=== PATIENT | female | born 1945 | race Caucasian/White ===

== ENCOUNTER 2019-07-07 07:52 | Day surgery (SDC) | payer MEDICARE ==
[~2019-07-07] VITALS: Ht 162.6 cm; Wt 87.7 kg
[~2019-07-07 07:52] MED LIST: ARTHRITIS PAIN650 MG PO; Advil200 M1 PO; Arthritis Pain650 M1 PO; EPIPEN 2-P0.3 MG/0.3 IM; EPIPEN0.3 MG/0.3 IM; HYDR1TAB94 PO; METO25 PO; MIGRAINE RELIE1 EACH PO; Norco 10-325 T1 EACH PO; POTA10T PO; POTCHL10ER PO; PRED20 PO; Prednisone20 MG PO; Robaxin750 MG PO; TRAZ50 PO; TUMS500 MG PO; ZYRTEC10 M1 PO; [UNRECOGNIZED DRUG - OTHER]
[2019-07-07] MEDS ORDERED: Ibuprofen Ib200 MG (08:25)
[2019-07-07] MEDS ORDERED: CHOL10002 (08:25)
--- NOTE | 2019-07-07 10:44 | NUR ---
07/07/19 1044 Aida Kapoor LATE ENTRY--ANESTHESIA EVALUATION DONE BY DR OLIVERA AND HE DECIDED NO NEED FOR ANESTHESIA. DR BROWER AGREED AND NURSE SEDATION WAS DONE WITH PATIENT CONSENT AND APPROVAL
== END 2019-07-07 10:30 | disposition home or self-care (01) ==
LOC: ORSCSDS 07:52
PROVIDERS: Surgery
PROC: 0DJD8ZZ Inspection of Lower Intestinal Tract, Via Natural or Artificial Opening Endoscopic (ICD-10-PCS; principal; 2019-07-07 09:15)
DX: Z12.11 Encounter for screening for malignant neoplasm of colon (principal); I10 Essential (primary) hypertension; Z79.899 Other long term (current) drug therapy
CPT/HCPCS: J2405; J2704; J7120

== ENCOUNTER → 2020-04-15 | Outpatient (CLI) | payer MEDICARE ==
[~2020-04-15] MED LIST changes: +CHOL10002; +Ibuprofen Ib200 MG
== END | disposition home or self-care (01) ==
LOC: LAB SHORT 18:16 → LAB 18:16
DX: M54.5 Low back pain (principal)
CPT/HCPCS: 87086

== ENCOUNTER → 2022-01-11 | Outpatient (CLI) | payer OTHER | LOC: LAB 13:45 → LAB SHORT 13:45 | DX: N39.0 Urinary tract infection, site not specified (principal) | CPT/HCPCS: 87086 ==

== ENCOUNTER → 2022-06-20 | Outpatient (CLI) | payer OTHER | END | disposition home or self-care (01) | LOC: LAB SHORT 12:30 → PLD 12:30 | DX: D48.5 Neoplasm of uncertain behavior of skin (principal) | CPT/HCPCS: 88305 ==

== ENCOUNTER → 2023-10-21 | Outpatient (CLI) | payer OTHER ==
[2023-10-21 16:00] LABS: Source, Urine Clean Catch
[2023-10-21 17:35] LABS: Appearance, Urine Hazy (Clear); Bilirubin, Urine Neg (Neg); Blood, Urine 3+ (Neg); Color, Urine Yellow (P-Yellow); Glucose Qualitative, Urine Neg (Neg); Ketones, Urine Neg (Neg); Leukocyte Esterase, Urine 3+ (Neg); Nitrite, Urine Neg (Neg); Protein, Urine 2+ (Neg); Urobilinogen, Urine NORM (Normal)
[2023-10-21 18:14] LABS: Bacteria Many /hpf; Calcium Oxalate Crystals Mod /hpf; Squamous Epithelial Cells Few /hpf (Few); Transitional Epithelial Cells Few /hpf (0-Rare); White Blood Cells, Urine 50-100 /hpf (0-5)
== END ==
LOC: LAB 15:59 → LAB SHORT 15:59
PROVIDERS: Student in an Organized Health Care Education/Training Program
DX: R30.0 Dysuria (principal)
CPT/HCPCS: 81001; 87077; 87086; 87186

== ENCOUNTER → 2023-11-23 | Outpatient (CLI) | payer OTHER ==
[~2023-11-23] MED LIST changes: +CEFUROXIME SOD1.5 GM; +HYDROCODONE-AC1 EAC7; +LOSA25 PO; +ONDA4ODT MM
[2023-11-23 10:26] LABS: BASOPHILS ABSOLUTE AUTO 0.04 K/mm3 (0.00-0.23); BASOPHILS PERCENT AUTO 0 % (0-2); EOSINOPHILS ABSOLUTE AUTO 0.21 K/mm3 (0.00-0.68); EOSINOPHILS PERCENT AUTO 2 % (0-6); Hematocrit 35.6 % (33.0-51.0); Hemoglobin 11.4 g/dL (11.5-16.0); IMMATURE GRAN ABSOLUTE AUTO 0.08 K/mm3 (0.00-0.10); IMMATURE GRAN PERCENT AUTO 1 % (0-1); LYMPHOCYTES ABSOLUTE AUTO 2.72 K/mm3 (0.84-5.20); LYMPHOCYTES PERCENT AUTO 25 % (21-46); MONOCYTES PERCENT AUTO 10 % (4-13); Mean Corpuscular Volume 84 fL (80-100); Mean Platelet Volume 9.8 fL (9.1-12.4); NEUTROPHILS ABSOLUTE AUTO 6.57 K/mm3 (1.96-9.15); NEUTROPHILS PERCENT AUTO 61 % (41-73); Platelet Count 394 K/mm3 (150-400); RDW Coefficient Variation 14.2 % (11.7-14.2); RDW Standard Deviation 43.5 fL (35.1-46.3); Red Blood Cell Count 4.23 M/mm3 (3.80-5.20); White Blood Cell Count 10.72 K/mm3 (4.00-11.30)
[2023-11-23 10:40] LABS: Albumin, Blood 2.8 g/dL (3.4-5.0); Albumin/Globulin Ratio 0.6 (0.8-1.8); Bilirubin, Total 0.5 mg/dL (0.1-1.0); Bun/Creatinine Ratio 17.9 (12.0-20.0); Calcium, Blood 10.9 mg/dL (8.5-10.1); Creatinine, Blood 1.34 mg/dL (0.40-1.00); Globulin, Blood 4.9 g/dL (2.2-4.0); Potassium, Blood 3.5 mmol/L (3.5-5.5); Total Protein, Blood 7.7 g/dL (6.4-8.2)
[2023-11-23 11:31] LABS: Magnesium, Blood 1.8 mg/dL (1.6-2.4); Phosphorus, Blood 3.6 mg/dL (2.5-4.9)
== END | disposition home or self-care (01) ==
LOC: LAB 10:21 → LAB SHORT 10:21
PROVIDERS: Chiropractor
DX: N39.0 Urinary tract infection, site not specified (principal); E20.9 Hypoparathyroidism, unspecified; R53.83 Other fatigue
CPT/HCPCS: 80053; 82306; 82330; 82550; 83690; 83735; 83970; 84100; 84484; 85025; 87077; 87086; 87186

== ENCOUNTER 2023-11-25 11:22 | Emergency (ER) | payer OTHER ==
[~2023-11-25] VITALS: Ht 162.6 cm; Wt 77.1 kg
[~2023-11-25 11:22] MED LIST changes: -CEFUROXIME SOD1.5 GM; -HYDROCODONE-AC1 EAC7; -LOSA25 PO; -ONDA4ODT MM
[2023-11-25 12:26] LABS: BASOPHILS ABSOLUTE AUTO 0.06 K/mm3 (0.00-0.23); BASOPHILS PERCENT AUTO 0 % (0-2); EOSINOPHILS ABSOLUTE AUTO 0.12 K/mm3 (0.00-0.68); EOSINOPHILS PERCENT AUTO 1 % (0-6); Hematocrit 37.2 % (33.0-51.0); Hemoglobin 12.2 g/dL (11.5-16.0); IMMATURE GRAN PERCENT AUTO 2 % (0-1); LYMPHOCYTES ABSOLUTE AUTO 2.54 K/mm3 (0.84-5.20); LYMPHOCYTES PERCENT AUTO 15 % (21-46); MONOCYTES ABSOLUTE AUTO 1.61 K/mm3 (0.16-1.47); MONOCYTES PERCENT AUTO 9 % (4-13); Mean Corpuscular HGB 27.7 pg (26.0-34.0); Mean Corpuscular HGB Conc 32.8 g/dL (31.5-36.5); Mean Corpuscular Volume 85 fL (80-100); NEUTROPHILS ABSOLUTE AUTO 12.74 K/mm3 (1.96-9.15); NEUTROPHILS PERCENT AUTO 73 % (41-73); Platelet Count 486 K/mm3 (150-400); RDW Coefficient Variation 14.4 % (11.7-14.2); RDW Standard Deviation 44.4 fL (35.1-46.3); White Blood Cell Count 17.37 K/mm3 (4.00-11.30)
[2023-11-25 12:35] LABS: Albumin, Blood 2.9 g/dL (3.4-5.0); Albumin/Globulin Ratio 0.5 (0.8-1.8); Bilirubin, Total 0.7 mg/dL (0.1-1.0); Calcium, Blood 9.4 mg/dL (8.5-10.1); Globulin, Blood 5.3 g/dL (2.2-4.0); Potassium, Blood 3.2 mmol/L (3.5-5.5); Total Protein, Blood 8.2 g/dL (6.4-8.2)
[2023-11-25] MEDS ORDERED: HYDROCODONE-AC1 EAC7 (12:51)
[2023-11-25] MEDS ORDERED: LOSA25 PO (12:51)
[2023-11-25] MEDS ORDERED: CEFUROXIME SOD1.5 GM (12:51)
[2023-11-25] MEDS ORDERED: ONDA4ODT MM (13:30)
[2023-11-25 13:45] VITALS: BP 118/51
== END 2023-11-25 14:18 | disposition home or self-care (01) ==
LOC: ER 11:22
PROVIDERS: Student in an Organized Health Care Education/Training Program
DX: N39.0 Urinary tract infection, site not specified (principal); B96.20 Unspecified Escherichia coli [E. coli] as the cause of diseases classified elsewhere; E86.0 Dehydration; E87.6 Hypokalemia; R10.13 Epigastric pain; I10 Essential (primary) hypertension; Z88.2 Allergy status to sulfonamides; Z79.899 Other long term (current) drug therapy
CPT/HCPCS: 80053; 85025; 93005; 93010; 96365; 96375; 99285-25; A9270; C9113; J0696; J2405; J7030

== ENCOUNTER 2023-12-10 07:13 | Inpatient (IN) | payer OTHER ==
[~2023-12-10] VITALS: Ht 157.5 cm; Wt 86.5 kg
[~2023-12-10 07:13] MED LIST changes: +CEFUROXIME SOD1.5 GM; +HYDROCODONE-AC1 EAC7; +LOSA25 PO; +ONDA4ODT MM
[2023-12-10 08:29] LABS: Source, Urine Clean Catch
[2023-12-10 08:42] LABS: BASOPHILS ABSOLUTE AUTO 0.03 K/mm3 (0.00-0.23); BASOPHILS PERCENT AUTO 0 % (0-2); EOSINOPHILS PERCENT AUTO 0 % (0-6); Hematocrit 36.6 % (33.0-51.0); Hemoglobin 11.9 g/dL (11.5-16.0); IMMATURE GRAN ABSOLUTE AUTO 0.15 K/mm3 (0.00-0.10); IMMATURE GRAN PERCENT AUTO 1 % (0-1); LYMPHOCYTES ABSOLUTE AUTO 0.81 K/mm3 (0.84-5.20); LYMPHOCYTES PERCENT AUTO 4 % (21-46); MONOCYTES ABSOLUTE AUTO 1.45 K/mm3 (0.16-1.47); MONOCYTES PERCENT AUTO 8 % (4-13); Mean Corpuscular HGB 27.2 pg (26.0-34.0); Mean Corpuscular HGB Conc 32.5 g/dL (31.5-36.5); Mean Corpuscular Volume 84 fL (80-100); NEUTROPHILS PERCENT AUTO 87 % (41-73); Platelet Count 372 K/mm3 (150-400); RDW Standard Deviation 43.1 fL (35.1-46.3); Red Blood Cell Count 4.37 M/mm3 (3.80-5.20); White Blood Cell Count 18.64 K/mm3 (4.00-11.30)
[2023-12-10 08:43] LABS: Appearance, Urine Cloudy (Clear); Bilirubin, Urine Neg (Neg); Blood, Urine 3+ (Neg); Color, Urine Yellow (P-Yellow); Glucose Qualitative, Urine Neg (Neg); Ketones, Urine Neg (Neg); Leukocyte Esterase, Urine 3+ (Neg); Nitrite, Urine Neg (Neg); Protein, Urine 3+ (Neg); Urobilinogen, Urine NORM (Normal); pH, Urine 6.5 (5.0-8.0)
[2023-12-10 08:46] LABS: Albumin/Globulin Ratio 0.7 (0.8-1.8); Bilirubin, Total 1.1 mg/dL (0.1-1.0); Bun/Creatinine Ratio 20.8 (12.0-20.0); Calcium, Blood 9.2 mg/dL (8.5-10.1); Creatinine, Blood 1.2 mg/dL (0.40-1.00); Globulin, Blood 4.1 g/dL (2.2-4.0); Potassium, Blood 4.3 mmol/L (3.5-5.5); Total Protein, Blood 7.1 g/dL (6.4-8.2)
[2023-12-10 08:53] LABS: Bacteria Many /hpf; Squamous Epithelial Cells Mod /hpf (Few); Transitional Epithelial Cells Mod /hpf (0-Rare); White Blood Cells, Urine 25-50 /hpf (0-5)
[2023-12-10 08:54] LABS: Red Blood Cells, Urine 0-2 /hpf (0-2)
[2023-12-10 08:55] LABS: Hyaline Casts 0-2 /lpf (0-2)
[2023-12-10 09:45] LABS: Source, Urine Straight Cath
[2023-12-10 09:51] LABS: Appearance, Urine Clear (Clear); Bilirubin, Urine Neg (Neg); Blood, Urine 2+ (Neg); Color, Urine Yellow (P-Yellow); Glucose Qualitative, Urine Neg (Neg); Ketones, Urine Neg (Neg); Leukocyte Esterase, Urine 3+ (Neg); Nitrite, Urine Neg (Neg); Protein, Urine 1+ (Neg); Specific Gravity, Urine 1.005 (1.003-1.022); Urobilinogen, Urine NORM (Normal); pH, Urine 6.5 (5.0-8.0)
[2023-12-10 10:05] LABS: Bacteria Few /hpf; Squamous Epithelial Cells Few /hpf (Few)
[2023-12-10 20:30] VITALS: BP 94/61
--- NOTE | 2023-12-10 20:30 | NUR ---
ADMIT RECEIVED FROM ER VIA GURNEY. AWAKE AND ALERT. ORIENTED AND COOPERATIVE. PT IS ABLE TO REPOSITION SELF IN BED. DENIES C/O PAIN AT THIS TIME. DENIES NAUSEA. MONITOR SHOWS NSR, RATE 70s. BP STABLE. RA SATS STABLE AND RESPIRATIONS ARE EVEN AND UNLABORED. SEE ADMIT ASSESSMENT FOR FULL ASSESSMENT.
[2023-12-10 20:45] VITALS: BP 123/54
[2023-12-10 21:00] VITALS: BP 110/59
[2023-12-10 22:00] VITALS: BP 95/56
[2023-12-10 23:00] VITALS: BP 103/58
[2023-12-11] VITALS (12 sets, daily range): BP systolic 81–152; BP diastolic 44–70
[2023-12-11 04:23] LABS: BASOPHILS ABSOLUTE AUTO 0.03 K/mm3 (0.00-0.23); BASOPHILS PERCENT AUTO 0 % (0-2); EOSINOPHILS ABSOLUTE AUTO 0.01 K/mm3 (0.00-0.68); EOSINOPHILS PERCENT AUTO 0 % (0-6); Hemoglobin 10.8 g/dL (11.5-16.0); IMMATURE GRAN ABSOLUTE AUTO 0.15 K/mm3 (0.00-0.10); IMMATURE GRAN PERCENT AUTO 1 % (0-1); LYMPHOCYTES ABSOLUTE AUTO 2.34 K/mm3 (0.84-5.20); LYMPHOCYTES PERCENT AUTO 11 % (21-46); MONOCYTES ABSOLUTE AUTO 1.23 K/mm3 (0.16-1.47); MONOCYTES PERCENT AUTO 6 % (4-13); Mean Corpuscular HGB Conc 31.8 g/dL (31.5-36.5); Mean Corpuscular Volume 85 fL (80-100); Mean Platelet Volume 9.8 fL (9.1-12.4); NEUTROPHILS ABSOLUTE AUTO 18.07 K/mm3 (1.96-9.15); NEUTROPHILS PERCENT AUTO 83 % (41-73); Platelet Count 304 K/mm3 (150-400); RDW Coefficient Variation 14.6 % (11.7-14.2); RDW Standard Deviation 44.9 fL (35.1-46.3); White Blood Cell Count 21.83 K/mm3 (4.00-11.30)
[2023-12-11 05:19] LABS: Albumin, Blood 2.6 g/dL (3.4-5.0); Albumin/Globulin Ratio 0.6 (0.8-1.8); Bilirubin, Total 0.8 mg/dL (0.1-1.0); Bun/Creatinine Ratio 16.8 (12.0-20.0); Calcium, Blood 8.7 mg/dL (8.5-10.1); Creatinine, Blood 1.43 mg/dL (0.40-1.00); Globulin, Blood 4.1 g/dL (2.2-4.0); Potassium, Blood 4.5 mmol/L (3.5-5.5); Total Protein, Blood 6.7 g/dL (6.4-8.2)
--- NOTE | 2023-12-11 06:14 | NUR ---
SHIFT SUMMARY NO ACUTE CHANGES DURING NOC. SLEPT INTERMITTENTLY. ROUSES EASILY TO STIMULI. MEDICATED WITH DILAUDID 1MG PO X 1 DOSE AND TYLENOL 650MG PO X 1 DOSE FOR C/O LEFT FLANK PAIN. MEDICATED WITH ZOFRAN 4MG IV X 1 DOSE FOR C/I NAUSEA. CONTINUES WITH GENERAL WEAKNESS. UP TO [facility] WITH ONE PERSON ASSIST. VOIDED X 1 DURING SHIFT AND PASSED 1 LARGE SOFT UNFORMED STOOL. C/O BURNING WITH URINATION. VSS. MONITOR SHOWS NSR, RATE 60s-70s. RA SATS STABLE. AFEBRILE. POTENTIAL PLAN TO TRANSFER PT TO [facility] WHEN BED AVAILABLE.
--- NOTE | 2023-12-11 10:48 | NUR ---
[place] transfer Pt reporting pain to left flank, medicated per emar. Pt reproting nausea, medicated per emar. No changes t/o shift from initial assessment. Pt left with [facility] transport at approx 0915. Family at bedside. Report called to [facility].
== END 2023-12-11 09:15 | disposition short-term general hospital (02) | DRG 872 ==
LOC: ER 07:13 → ICUE 19:28 → PCU 19:28 → ICUE 20:30
PROVIDERS: Emergency Medicine; Family Medicine; ADMIT Student in an Organized Health Care Education/Training Program
DX: A41.9 Sepsis, unspecified organism (principal); N13.6 Pyonephrosis; E87.20 Acidosis, unspecified; Z66 Do not resuscitate; R65.20 Severe sepsis without septic shock; I10 Essential (primary) hypertension; M19.90 Unspecified osteoarthritis, unspecified site; K21.9 Gastro-esophageal reflux disease without esophagitis; G89.29 Other chronic pain; M54.50 Low back pain, unspecified; E87.6 Hypokalemia; Z96.82 Presence of neurostimulator; Z79.891 Long term (current) use of opiate analgesic
CPT/HCPCS: 36415; 51701; 74177; 80053; 81001; 83605; 83690; 84484; 85025; 87077; 87086; 87186; 93005; 93010; 96361; 96365-59; 96375; 96376; 99285-25; A9270; J0696; J1170; J2405; J3010; J7030; Q9967

== ENCOUNTER 2023-12-15 16:38 | Inpatient (IN) | payer OTHER ==
[~2023-12-15] VITALS: Ht 157.5 cm; Wt 89.3 kg
[~2023-12-15 16:38] MED LIST changes: -LOSA25 PO; +LOSA50 PO
[2023-12-15 17:10] LABS: BASOPHILS ABSOLUTE AUTO 0.02 K/mm3 (0.00-0.23); BASOPHILS PERCENT AUTO 0 % (0-2); EOSINOPHILS ABSOLUTE AUTO 0.02 K/mm3 (0.00-0.68); EOSINOPHILS PERCENT AUTO 0 % (0-6); Hemoglobin 12.4 g/dL (11.5-16.0); IMMATURE GRAN PERCENT AUTO 2 % (0-1); LYMPHOCYTES ABSOLUTE AUTO 2.02 K/mm3 (0.84-5.20); LYMPHOCYTES PERCENT AUTO 21 % (21-46); MONOCYTES ABSOLUTE AUTO 0.77 K/mm3 (0.16-1.47); MONOCYTES PERCENT AUTO 8 % (4-13); Mean Corpuscular HGB 26.4 pg (26.0-34.0); Mean Corpuscular HGB Conc 32.6 g/dL (31.5-36.5); Mean Corpuscular Volume 81 fL (80-100); Mean Platelet Volume 9.6 fL (9.1-12.4); NEUTROPHILS ABSOLUTE AUTO 6.67 K/mm3 (1.96-9.15); NEUTROPHILS PERCENT AUTO 69 % (41-73); Platelet Count 549 K/mm3 (150-400); RDW Coefficient Variation 14.4 % (11.7-14.2); RDW Standard Deviation 42.2 fL (35.1-46.3); Red Blood Cell Count 4.69 M/mm3 (3.80-5.20)
[2023-12-15] MEDS ORDERED: PANTOPRAZOLE SO40 M2 PO (17:13)
[2023-12-15] MEDS ORDERED: METO50ER PO (17:14)
[2023-12-15] MEDS ORDERED: Potassium Chlo20 ME1 PO (17:14)
[2023-12-15] MEDS ORDERED: APHEN325 M2 PO (17:24)
[2023-12-15] MEDS ORDERED: CEPH500 PO (17:26)
[2023-12-15 17:28] LABS: Albumin/Globulin Ratio 0.6 (0.8-1.8); Bilirubin, Total 0.3 mg/dL (0.1-1.0); Bun/Creatinine Ratio 16.5 (12.0-20.0); Calcium, Blood 9.7 mg/dL (8.5-10.1); Creatinine, Blood 0.79 mg/dL (0.40-1.00); Globulin, Blood 4.7 g/dL (2.2-4.0); Potassium, Blood 2.8 mmol/L (3.5-5.5); Total Protein, Blood 7.7 g/dL (6.4-8.2)
[2023-12-15 17:46] LABS: Source, Urine Clean Catch
[2023-12-15 17:48] LABS: Bilirubin, Urine Neg (Neg); Blood, Urine 4+ (Neg); Color, Urine Yellow (P-Yellow); Glucose Qualitative, Urine Neg (Neg); Ketones, Urine Neg (Neg); Leukocyte Esterase, Urine 3+ (Neg); Nitrite, Urine Neg (Neg); Protein, Urine 3+ (Neg); Urobilinogen, Urine NORM (Normal); pH, Urine 6.5 (5.0-8.0)
[2023-12-15 17:55] LABS: Appearance, Urine Hazy (Clear)
[2023-12-15 17:57] LABS: Bacteria Mod /hpf
[2023-12-15 17:58] LABS: Squamous Epithelial Cells Mod /hpf (Few)
[2023-12-15 23:11] LABS: Adenovirus F 40/41 Not Detected (NOT DETECT); Astrovirus Not Detected (NOT DETECT); Campylobacter Sp Not Detected (NOT DETECT); Cryptosporidium Not Detected (NOT DETECT); Cyclospora Cayetanensis Not Detected (NOT DETECT); E. Coli O157 Not Detected (NOT DETECT); Entamoeba Histolytica Not Detected (NOT DETECT); Enteroaggregative E. coli-EAEC Not Detected (NOT DETECT); Enteropathogenic E. coli-EPEC Not Detected (NOT DETECT); Enterotoxigenic E. coli-ETEC Not Detected (NOT DETECT); Giardia Lamblia Not Detected (NOT DETECT); Norovirus GI/GII Not Detected (NOT DETECT); Plesiomonas Shigelloides Not Detected (NOT DETECT); Rotavirus A Not Detected (NOT DETECT); Salmonella Sp Not Detected (NOT DETECT); Sapovirus Not Detected (NOT DETECT); Shiga Toxin-prod E. coli-STEC Not Detected (NOT DETECT); Shigella/Enteroin E. coli-EIEC Not Detected (NOT DETECT); Vibrio Cholerae Not Detected (NOT DETECT); Vibrio Sp Not Detected (NOT DETECT); Yersinia Enterocolitica Not Detected (NOT DETECT)
[2023-12-16] VITALS (8 sets, daily range): BP systolic 144–218; BP diastolic 55–92
--- NOTE | 2023-12-16 01:29 | NUR ---
ER ADMIT PT ARRIVED FROM ER. A&O X 4. PT USES CANE, WALKER AT [facility]. PT EXPEREINCING ACTIVE N/V AND ELEVATED BP UPON TRANSFER. PT WAS PREVIOUSLY AT [facility] HAVING STENTS PLACED FOR KIDNEY STONE INFECTION. PT WAS DISCAHRGED SATURDAY AND WAS BROUGHT IN TODAY DUE TO SYNCOPE, COLLAPSE AND UTI. PT CONTINUED TO EXPERIENCE N/V/D WELL ABDOMINAL PAIN AND ELEVATED BP. DISCUSSED WITH APPLICATIONS PROCESSOR AND PHYSICIAN. TO/VO DR. BECERRA TO GIVE APRESOLINE AND PHENERGAN. PROVIDER STATED HE WOULD ENTER PAIN MED. 12/16/22 SD RN
--- NOTE | 2023-12-16 05:58 | NUR ---
SHIFT SUMMARY PT NEW ADMIT FROM ER TONIGHT. PT ARRIVED IN PAIN WITH ELEVATED BP, N/V. PT REPORTING HIGH PAIN LEVELS FROM ABDOMINAL AREA. PT WAS GIVEN PO BP MEDS IN ER WHICH SHE DID NOT HOLD DOWN SO LEBETALOL WAS GIVEN PRIOR TO TRANSER. PT BP INCREASED FOLLOWING ADMINISTRATION. APPRESSOLINE 20 MG WAS GIVEN AND BP ONLY REDUCED SLIGHTLY. BP FINALLY DECREASED AFTER DILAUDID WAS GIVEN. ANOTHER 10MG OF APPRESOLINE GIVEN FOLLOWING DILAUDID TO BRING IT DOWN EVEN MORE. PT EXPEREINCED N/V FOR THE FIRST FEW HOURS SHE WAS MEDICATED WITH REGLAN, ZOFRAN, AND PO PHENERGAN. PT EATING ICE CHIPS AND FINALLY STOPPED VOMITING AROUND 0330. PT EXPERIENG ABDOMINAL PAIN AND REPORTS PAIN LEVEL OVER 10. PT WAS GIVEN FENTANYL AND REPORTED NO RELIEF IN ABDOMINAL PAIN. PT REQUESTING DILAUDID. VO TO START DILAUDID. PT RESTING COMFORTABLY AND REPORTED PAIN LEVEL OF 3/10 FOLLOWING ADMINISTRATION .PT AWAKE WITH N/V/D AND PAIN MOST OF THE NIGHT. DR. RIVER AWARE OF N/V/D, ELEVATED BP AND PAIN LEVELS. PROVIDER WAS CONTACTED MULTIPLE TIMES FOR VO THROUGH THE SHIFT. 12/16/22 PRAVEENA AVILES RN
[2023-12-16 08:55] LABS: Bun/Creatinine Ratio 15.1 (12.0-20.0); Calcium, Blood 9.2 mg/dL (8.5-10.1); Creatinine, Blood 0.86 mg/dL (0.40-1.00); Potassium, Blood 2.9 mmol/L (3.5-5.5)
--- NOTE | 2023-12-16 18:03 | NUR ---
SHIFT SUMMARY PT AOX4, 1 ASSIST WITH A CANE OR FWW TO THE BR. PT MEDICATED FOR PAIN AND NAUSEA/VOMITTING PER THE EMAR. ALSO MEDICATED FOR ACID REFLUX PER THE EMAR. PT IS CURRENTLY RECEIVING IV FLUIDS AND POTASSIUM INFUSION. PT'S APPETITE IS RETURNING BUT ENCOURAGED TO TAKE IT SLOW. SHE HAS BEEN TOLERATING ORAL FLUIDS MOST OF THIS AFTERNOON WHICH IS IMPROVEMENT. CALL LIGHT WITHIN REACH, BED IN THE LOWEST POSITION. WILL REPORT TO ONCOMING NURSE.
[2023-12-17 04:06] VITALS: BP 198/97
[2023-12-17 05:35] LABS: Albumin, Blood 2.7 g/dL (3.4-5.0); Anion Gap 7 mmol/L (6-16); Blood Urea Nitrogen 13 mg/dL (8-24); Bun/Creatinine Ratio 14.9 (12.0-20.0); CO2, Blood 23 mmol/L (21-32); Calcium, Blood 8.4 mg/dL (8.5-10.1); Chloride, Blood 115 mmol/L (98-108); Creatinine, Blood 0.87 mg/dL (0.40-1.00); Glomerular Filtration Rate 69 (60-); Glucose, Blood 111 mg/dL (70-99); Magnesium, Blood 1.7 mg/dL (1.6-2.4); Phosphorus, Blood 1.9 mg/dL (2.5-4.9); Potassium, Blood 3.2 mmol/L (3.5-5.5); Sodium, Blood 145 mmol/L (136-145)
--- NOTE | 2023-12-17 06:12 | NUR ---
HORSE RACETRACK MANAGER SUMMARY BP ELEVATED, OTHERWISE VSS. ANTIHYPERTENSIVE MEDS ADMINISTERED - SEE MAR AND DOC FLOW SHEETS FOR DETAILS. IVF AND ANTIBIOTICS INFUSING ORDERED. HAD LIQUID STOOL THIS AM. ALERT AND ORIENTED. HAS BEEN RESTING QUIETLY WITH FEW INTERRUPTIONS. CALL LIGHT IN REACH AND RAILS UP X 2 FOR SAFETY. WILL CONTINUE TO MONITOR
[2023-12-17 07:47] VITALS: BP 155/80
[2023-12-17 14:05] LABS: Albumin, Blood 2.8 g/dL (3.4-5.0); Anion Gap 8 mmol/L (6-16); Blood Urea Nitrogen 13 mg/dL (8-24); Bun/Creatinine Ratio 15.5 (12.0-20.0); CO2, Blood 22 mmol/L (21-32); Calcium, Blood 8.1 mg/dL (8.5-10.1); Chloride, Blood 109 mmol/L (98-108); Creatinine, Blood 0.84 mg/dL (0.40-1.00); Glomerular Filtration Rate 72 (60-); Glucose, Blood 108 mg/dL (70-99); Potassium, Blood 3.6 mmol/L (3.5-5.5); Sodium, Blood 139 mmol/L (136-145)
[2023-12-17 16:20] VITALS: BP 157/81
--- NOTE | 2023-12-17 17:00 | NUR ---
SHIFT SUMMARY PT AOX4, 1 ASSIST WITH THE FWW. BP IMPROVED THIS SHIFT. PT OVERALL HAS IMPROVED, ABLE TO TOLERATE SOME ORAL FOOD AND FLUIDS. PAIN HAS BEEN CONTROLLED VIA THE EMAR. NO C/O N/V THIS SHIFT. SEE OTHER NOTE FOR EVENT WITH TELE. CALL LIGHT WITHIN REACH, BED IN THE LOWEST POSITION. WILL REPORT TO ONCOMING NURSE.
[2023-12-17 19:21] VITALS: BP 182/87
[2023-12-17 20:38] VITALS: BP 151/62
[2023-12-18 02:41] VITALS: BP 171/69
[2023-12-18 03:39] VITALS: BP 152/57
--- NOTE | 2023-12-18 05:24 | NUR ---
SHIFT SUMMARY PT A&OX4. PT C/O PAIN AND MEDICATED PER EMAR. PT'S BP ELEVATED, 171/69, WITH MORNING VITALS. MEDICATED WITH HYDRALAZINE PER EMAR AND BP DROPPED TO 152/57. CONTINUING TO INFUSE NS AT 100ML/HR PER ORDER. PUREWICK IN PLACE. PT UP TO BSC ONCE DURING THE NIGHT. BED IN LOWEST POSITION AND CALL LIGHT IN REACH.
[2023-12-18 07:58] VITALS: BP 168/74
[2023-12-18] MEDS ORDERED: PROM25 PO (14:38)
[2023-12-18 15:09] LABS: SARS-Cov-2 (COVID-19) PCR, MMC NEGATIVE (NEGATIVE)
[2023-12-18 15:57] VITALS: BP 167/65
--- NOTE | 2023-12-18 17:04 | NUR ---
DISCHARGE DIRK Patient medically stable for DC. Plan to DC to SNF for rehab/PT. Patient left medical floor at 1700. Called [facility] & gave report to Kimo BEAVERS. Vitals stable, afebrile, COVID test negative.
== END 2023-12-18 16:57 | DRG 309 ==
LOC: ER 16:38 → MEDS 16:39
PROVIDERS: Internal Medicine; Nurse Practitioner Acute Care; Student in an Organized Health Care Education/Training Program; ADMIT Internal Medicine
DX: I47.19 Other supraventricular tachycardia (principal); N39.0 Urinary tract infection, site not specified; E87.6 Hypokalemia; K21.9 Gastro-esophageal reflux disease without esophagitis; R19.7 Diarrhea, unspecified; I10 Essential (primary) hypertension; G89.29 Other chronic pain; M54.50 Low back pain, unspecified; R53.1 Weakness; E86.0 Dehydration; M19.90 Unspecified osteoarthritis, unspecified site; E83.39 Other disorders of phosphorus metabolism; Z96.0 Presence of urogenital implants; Z88.2 Allergy status to sulfonamides; Z96.82 Presence of neurostimulator
CPT/HCPCS: 36415; 71045; 80048; 80053; 80069; 81001; 83735; 84132; 84443; 84484; 85025; 87086; 87507; 96361; 96365; 96372; 96375; 96376; 97110; 97162; 97165; 97530; 97535; 99285-25; A9270; C9113; G0378; J0360; J0696; J1170; J1650; J2405; J2765; J3010; J3480; J7030; J7050; J7060; U0002

== ENCOUNTER → 2024-02-28 | Outpatient (CLI) | payer OTHER ==
[~2024-02-28] MED LIST changes: +APHEN325 M2 PO; +CEPH500 PO; +METO50ER PO; +PANTOPRAZOLE SO40 M2 PO; +PROM25 PO; +Potassium Chlo20 ME1 PO
[2024-03-05 16:15] LABS: CALCIUM, URINE - PER 24H 119 mg/d (100-250); CALCIUM, URINE - PER VOLUME 6.7 mg/dL; CHLORIDE, URINE - PER 24H 53 mmol/d (140-250); CHLORIDE, URINE - PER VOLUME 30 mmol/L; CITRIC ACID, URINE - PER 24H <18 mg/d (320-1240); CITRIC ACID,URINE - PER VOLUME <10 mg/L; CREATININE, URINE - PER 24H 926 mg/d (500-1400); CREATININE, URINE - PER VOLUME 52 mg/dL; HOURS COLLECTED 24 hr; MAGNESIUM, URINE - PER VOLUME 2.4 mg/dL; MAGNESIUM, URINE PER 24H 43 mg/d (12-199); OXALATE, URINE - PER 24H 28 mg/d (13-40); OXALATE, URINE - PER VOLUME 16 mg/L; PH, URINE 5.76 (5.00-7.50); PHOSPHORUS, URINE - PER 24H 463 mg/d (400-1300); PHOSPHORUS, URINE - PER VOLUME 26 mg/dL; POTASSIUM, URINE - PER 24H 52 mmol/d (25-125); POTASSIUM, URINE - PER VOLUME 29 mmol/L; SODIUM, URINE - PER 24H 50 mmol/d (51-286); SODIUM, URINE - PER VOLUME 28 mmol/L; SULFATE, URINE - PER 24H < 5 mmol/d (6-30); SULFATE, URINE - PER VOLUME <5 mmol/L; TOTAL VOLUME 1780 mL; URIC ACID, URINE - PER 24H 267 mg/d (250-750); URINE SUPERSATURATION INTERP Abnormal; URINE SUPERSATURATION, CAHPO4 0.63; URINE SUPERSATURATION, CAOX 6.48; URINE SUPERSATURATION, UA CALC 0.37
== END ==
LOC: LAB SHORT 08:30 → LAB 08:30
PROVIDERS: Student in an Organized Health Care Education/Training Program
DX: N20.0 Calculus of kidney (principal)
CPT/HCPCS: 81003; 81050; 82131; 82140; 82340; 82436; 82507; 82570; 83735; 83935; 83945; 84105; 84133; 84300; 84392; 84560

== ENCOUNTER 2025-06-03 15:36 | Emergency (ER) | payer OTHER ==
[~2025-06-03] VITALS: Ht 157.5 cm; Wt 83.9 kg
[~2025-06-03 15:36] MED LIST changes: +ASPI81CH PO; +CYANOCOBALAMIN PO; +Calcium Carbon500 MG PO; +DIAZEPAM5 M2 PO; +Diflucan150 MG PO; +EXCEDRIN PO; +HYDCHL25 PO; +IBUP400 PO; +LINE600 PO; +METO50 PO; +OMEPRAZOLE MAGN20 M1 PO; +OXAYDO5 M1 PO; +POTCHL20ER PO; +THERA-D2000 UNIT PO; +TURMERIC500 M2; +ZEBUTAL 50-3251 EA10 PO; +[UNRECOGNIZED DRUG - CODE] PO; +[UNRECOGNIZED DRUG - OTHER] PO
[2025-06-03 17:21] LABS: Source, Urine Clean Catch
[2025-06-03 17:27] LABS: BASOPHILS ABSOLUTE AUTO 0.05 K/mm3 (0.00-0.23); BASOPHILS PERCENT AUTO 1 % (0-2); EOSINOPHILS ABSOLUTE AUTO 0.18 K/mm3 (0.00-0.68); EOSINOPHILS PERCENT AUTO 2 % (0-6); Hematocrit 38.2 % (33.0-51.0); Hemoglobin 11.6 g/dL (11.5-16.0); IMMATURE GRAN ABSOLUTE AUTO 0.04 K/mm3 (0.00-0.10); IMMATURE GRAN PERCENT AUTO 0 % (0-1); LYMPHOCYTES ABSOLUTE AUTO 3.34 K/mm3 (0.84-5.20); LYMPHOCYTES PERCENT AUTO 32 % (21-46); MONOCYTES ABSOLUTE AUTO 0.84 K/mm3 (0.16-1.47); MONOCYTES PERCENT AUTO 8 % (4-13); Mean Corpuscular HGB Conc 30.4 g/dL (31.5-36.5); Mean Corpuscular Volume 81 fL (80-100); NEUTROPHILS ABSOLUTE AUTO 6.17 K/mm3 (1.96-9.15); NEUTROPHILS PERCENT AUTO 58 % (41-73); NRBC ABSOLUTE 0.00 K/mm3 (0.00-0.02); NRBC Auto 0.0 /100 WBC (0.0-0.2); Platelet Count 384 K/mm3 (150-400); RDW Coefficient Variation 15.0 % (11.7-14.2); RDW Standard Deviation 43.8 fL (35.1-46.3)
[2025-06-03 17:36] LABS: Bilirubin, Urine Neg (Neg); Glucose Qualitative, Urine Neg (Neg); Ketones, Urine Neg (Neg); Leukocyte Esterase, Urine 3+ (Neg); Protein, Urine Neg (Neg); Specific Gravity, Urine 1.010 (1.003-1.022); Urobilinogen, Urine NORM (Normal)
[2025-06-03 17:42] LABS: Color, Urine Pale Yellow (P-Yellow)
[2025-06-03 17:43] LABS: Red Blood Cells, Urine 0-2 /hpf (0-2); Yeast/Fungi Urine Mod /hpf
[2025-06-03 18:10] LABS: Alanine Aminotransfer (ALT/SGP 20.0 U/L (12-78); Albumin, Blood 3.6 g/dL (3.4-5.0); Albumin/Globulin Ratio 0.9 (0.8-1.8); Anion Gap 10.0 mmol/L (3-11); Aspartate Aminotrans (AST/SGOT 17.0 U/L (12-37); Bilirubin, Total 0.6 mg/dL (0.1-1.0); Blood Urea Nitrogen 23.0 mg/dL (8-24); CO2, Blood 24.0 mmol/L (21-32); Calcium, Blood 9.4 mg/dL (8.5-10.1); Chloride, Blood 106.0 mmol/L (98-108); Creatinine, Blood 1.13 mg/dL (0.40-1.00); Globulin, Blood 3.9 g/dL (2.2-4.0); Glucose, Blood 107.0 mg/dL (70-99); Potassium, Blood 3.4 mmol/L (3.5-5.5); Sodium, Blood 137.0 mmol/L (136-145); Total Protein, Blood 7.5 g/dL (6.4-8.2)
[2025-06-03] MEDS ORDERED: Ketorolac Tromethamine 15mg Vial IV ONE (19:20)
[2025-06-03] MEDS ORDERED: Ondansetron HCl 2 MG / ML 2ML Vial IV ONE (19:20)
[2025-06-03] MEDS ORDERED: CEFP200 PO (19:51)
[2025-06-03 20:17] VITALS: BP 144/90
== END 2025-06-03 20:18 | disposition home or self-care (01) ==
LOC: ER 15:36
PROVIDERS: Physician Assistant
DX: N12 Tubulo-interstitial nephritis, not specified as acute or chronic (principal); I10 Essential (primary) hypertension; Z79.82 Long term (current) use of aspirin; Z79.899 Other long term (current) drug therapy; Z88.2 Allergy status to sulfonamides
CPT/HCPCS: 74177; 80053; 81001; 85025; 87086; 96374-59; 99284-25; J1885; Q9967

== ENCOUNTER → 2025-07-22 | Outpatient (CLI) | payer OTHER ==
[~2025-07-22] MED LIST changes: +CEFP200 PO
[2025-07-22 17:23] LABS: Sodium, Urine 30.0 mmol/L (20-110); Uric Acid, Urine 17.1 mg/dL (7.5-49.5)
[2025-07-22 17:31] LABS: Phosphorus, Urine 22.3 mg/dL (20.0-60.0)
[2025-07-22 17:41] LABS: Calcium, Urine <5.0 mg/dL (< 17.5); Calcium, Urine Calculation Unable to Calculate mg/24hrs (42.0-353.0)
== END | disposition home or self-care (01) ==
LOC: LAB 07:00 → LAB SHORT 07:00
PROVIDERS: Urology
DX: N20.0 Calculus of kidney (principal)
CPT/HCPCS: 81050; 82340; 82507; 83735; 83945; 84105; 84300; 84560